=== PATIENT | female | born 1950 | race Caucasian/White ===

== ENCOUNTER 2024-03-19 09:42 | Outpatient (CLI) | payer MEDICARE | END 2024-03-19 09:43 | disposition home or self-care (01) | LOC: CSHMAMMO 09:42 | PROVIDERS: ATTEND Family Medicine | DX: Z12.31 Encounter for screening mammogram for malignant neoplasm of breast (principal); Z78.0 Asymptomatic menopausal state; M85.89 Other specified disorders of bone density and structure, multiple sites | CPT/HCPCS: 77063; 77067; 77080 ==